=== PATIENT | female | born 1950 | race Caucasian/White ===

== ENCOUNTER → 2017-04-23 | Outpatient (CLI) | payer OTHER | LOC: FIMAGING 09:08 | DX: Z12.31 Encounter for screening mammogram for malignant neoplasm of breast (principal) | CPT/HCPCS: G0202 ==

== ENCOUNTER → 2018-05-07 | Outpatient (CLI) | payer OTHER | LOC: FIMAGING 12:16 | PROVIDERS: ATTEND Internal Medicine | DX: Z12.31 Encounter for screening mammogram for malignant neoplasm of breast (principal) ==

== ENCOUNTER 2018-09-30 11:24 | Emergency (ER) | payer OTHER ==
[2018-09-30] MEDS ORDERED: NS 1,000 ML IV ONE (11:44)
--- NOTE | 2018-09-30 11:44 | EDPHY ---
H & P Time Seen by Provider: 09/30/18 11:41 HPI/ROS: Chief complaint. Chest pain, shortness of breath HPI. Patient is a 68-year-old female who had left knee surgery 2 weeks ago. She complains of slight increased pain and swelling to the left knee. Occasionally she has some chest pain and shortness of breath over the last couple days. She does not have any chest pain now. She has occasionally been lightheaded as well. Chest discomfort when she had a was in her left chest. She has no cough or fever. She spoke to her orthopedist who referred her for DVT/PE workup. She also has an appointment with Cardiology in 2 days. ROS 10 systems were reviewed and negative with the exception of the elements mentioned in the history of present illness Past Medical/Surgical History: Recent arthroscopic surgery Social History: , nonsmoker, no alcohol Smoking Status: Never smoked Physical Exam: General Appearance: Alert pleasant well-developed female mild distress vital signs are stable Eyes: Pupils equal and round no pallor or injection. ENT, Mouth: Mucous membranes are moist. Respiratory: There are no retractions, lungs are clear to auscultation. Cardiovascular: Regular rate and rhythm. Gastrointestinal: Abdomen is soft and nontender, no masses, bowel sounds normal. Neurological: Awake and alert, sensory and motor exams grossly normal. Skin: Warm and dry, no rashes. Musculoskeletal: Neck is supple nontender. Extremities left knee mildly swollen. No calf pain. No medial thigh pain. No evidence for infection Psychiatric: Patient is oriented X 3, there is no agitation. Constitutional: Initial Vital Signs Temperature (C) 36.4 C 09/30/18 11:26 Heart Rate 94 09/30/18 11:26 Respiratory Rate 16 09/30/18 11:26 Blood Pressure 142/85 H 09/30/18 11:26 O2 Sat (%) 97 09/30/18 11:26 O2 Delivery Mode Room Air Allergies/Adverse Reactions: No Known Allergies Allergy (Unverified 09/30/18 11:28) Home Medications: Medication Instructions Recorded NK [No Known Home Meds] 09/30/18 Medical Decision Making - Diagnostics EKG Interpretation: EKG interpreted by me shows normal sinus rhythm normal interval and axis. QRS is normal.. Slight ST S he depression anterior leads. No ST elevation. No ectopy. Rate 80 Imaging Results: Imaging Impressions Chest/Thorax CTA 09/30/18 11:44 Impression: 1. No evidence of thrombopulmonary embolic disease. 2. Mild airways disease and minimal posterior dependent atelectasis. 3. Three-vessel calcified coronary plaque. 4. Right nephrolithiasis. Findings discussed with Emergency Department physician, Katerine Cox on 2018, 13:21. Extremity Venous Study 09/30/18 12:04 Impression: There is no sonographic evidence of deep or superficial vein thrombosis in the left lower extremity. Findings were conveyed to KATERINE COX MD at 13:13, on 09/30/2018 using a secure [email or web address] text messaging system. CT chest angiogram shows no evidence of pulmonary embolus Ultrasound left lower extremity shows no evidence for DVT Procedures: IV normal saline, monitor Indication for chest CT is recent leg surgery 2 weeks ago with elevated D-dimer ED Course/Re-evaluation: Re-evaluation 2:10 p.m.. Patient is stable. She and I discussed imaging and lab results. We discussed treatment plan including criteria for return importance of follow-up and further evaluation. She expresses understanding and agreement. She also has add appointment with Cardiology in 2 days Differential Diagnosis: With recent surgery and elevated D-dimer and intermittent chest discomfort and shortness of breath CT angiogram and ultrasound were ordered. No evidence for PE or DVT. There is calcification noted on her chest CT. She will follow up in 2 days for cardiac evaluation - Data Points Laboratory Results: Laboratory Results 09/30/18 11:38 09/30/18 11:38 09/30/18 09/30/18 09/30/18 11:43 11:38 11:38 WBC RBC Hgb Hct MCV MCH MCHC RDW Plt Count MPV Neut % (Auto) Lymph % (Auto) [place] % (Auto) Eos % (Auto) Baso % (Auto) Nucleat RBC Rel Count Absolute Neuts (auto) Absolute Lymphs (auto) Absolute Monos (auto) Absolute Eos (auto) Absolute Basos (auto) Absolute Nucleated RBC Immature Gran % Immature Gran # D-Dimer 2.29 ug/mLFEU H ug/mLFEU (0.00-0.50) Sodium 138 mEq/L mEq/L (135-145) Potassium 3.8 mEq/L mEq/L (3.5-5.2) Chloride 102 mEq/L mEq/L (97-110) Carbon Dioxide 28 mEq/l mEq/l (22-31) Anion Gap 8 mEq/L mEq/L (6-14) BUN 12 mg/dL mg/dL (7-23) Creatinine 0.6 mg/dL mg/dL (0.6-1.0) Estimated GFR > 60 Glucose 100 mg/dL mg/dL (70-100) Calcium 9.9 mg/dL mg/dL (8.5-10.4) POC Troponin I 0.00 ng/mL ng/mL (0.00-0.08) 09/30/18 11:38 WBC 7.82 10^3/uL 10^3/uL (3.80-9.50) RBC 5.17 10^6/uL 10^6/uL (4.18-5.33) Hgb 15.1 g/dL g/dL (12.6-16.3) Hct 45.1 % % (38.0-47.0) MCV 87.2 fL fL (81.5-99.8) MCH 29.2 pg pg (27.9-34.1) MCHC 33.5 g/dL g/dL (32.4-36.7) RDW 14.3 % % (11.5-15.2) Plt Count 367 10^3/uL 10^3/uL (150-400) MPV 9.8 fL fL (8.7-11.7) Neut % (Auto) 70.4 % % (39.3-74.2) Lymph % (Auto) 19.4 % % (15.0-45.0) [place] % (Auto) 7.9 % % (4.5-13.0) Eos % (Auto) 1.2 % % (0.6-7.6) Baso % (Auto) 0.8 % % (0.3-1.7) Nucleat RBC Rel Count 0.0 % % (0.0-0.2) Absolute Neuts (auto) 5.51 10^3/uL 10^3/uL (1.70-6.50) Absolute Lymphs (auto) 1.52 10^3/uL 10^3/uL (1.00-3.00) Absolute Monos (auto) 0.62 10^3/uL 10^3/uL (0.30-0.80) Absolute Eos (auto) 0.09 10^3/uL 10^3/uL (0.03-0.40) Absolute Basos (auto) 0.06 10^3/uL 10^3/uL (0.02-0.10) Absolute Nucleated RBC 0.00 10^3/uL 10^3/uL (0-0.01) Immature Gran % 0.3 % % (0.0-1.1) Immature Gran # 0.02 10^3/uL 10^3/uL (0.00-0.10) D-Dimer Sodium Potassium Chloride Carbon Dioxide Anion Gap BUN Creatinine Estimated GFR Glucose Calcium POC Troponin I Medications Given: Discontinued Medications Sodium Chloride (Ns) 1,000 mls @ 0 mls/hr IV EDNOW ONE; Wide Open PRN Reason: Protocol Stop: 09/30/18 11:45 Last Admin: 09/30/18 12:00 Dose: 1,000 mls Point of Care Test Results: Chemistry 09/30/18 11:43 POC Troponin I 0.00 ng/mL ng/mL (0.00-0.08) Departure - Departure Disposition: Home, Routine, Self-Care Clinical Impression: Chest pain Qualifiers: Chest pain type: unspecified Qualified Code(s): R07.9 - Chest pain, unspecified Condition: Good Instructions: Chest Pain (ED) Additional Instructions: Keep your follow-up appointment with Cardiology on Friday Return sooner for worsening chest discomfort or trouble breathing. Referrals: Rubi Farris MD [Primary Care Provider] - As per Instructions Sheng Espinoza MD [Medical Doctor] - 1-2 days without fail
[2018-09-30 12:01] LABS: PLATELET COUNT 367 10^3/uL (150-400)
[2018-09-30] MEDS ORDERED: IOPAMIDOL (ISOVUE 370) 100 ML BTL IV ONE (12:10)
[2018-09-30 14:38] VITALS: BP 119/88
--- NOTE | 2018-09-30 15:22 | CPEKG ---
Test Reason : OPEN Blood Pressure : / mmHG Vent. Rate : 080 BPM Atrial Rate : 081 BPM P-R Int : 122 ms QRS Dur : 079 ms QT Int : 369 ms P-R-T Axes : 052 044 063 degrees QTc Int : 426 ms Sinus rhythm Minimal ST depression, diffuse leads Confirmed by Smion Cox ([id number]) on 09/30/2018 3:21:31 PM Referred By: Simon Cox Confirmed By:Simon Cox
== END 2018-09-30 14:38 | disposition home or self-care (01) ==
DX: R07.9 Chest pain, unspecified (principal); E86.9 Volume depletion, unspecified; Z98.890 Other specified postprocedural states
CPT/HCPCS: 71275; 93005; 93971; 96360; 99285; Q9967; 84484-ER